=== PATIENT | male | born 1965 | race African-American/Black ===

== ENCOUNTER 2021-09-23 02:44 | Inpatient (IN) | payer OTHER, SELFPAY ==
[2021-09-23] MEDS ORDERED: Morphine 2 MG/ML VIAL SLOW IVP PRN (03:18)
[2021-09-23] MEDS ORDERED: traMADol HCl 50 MG TAB PO PRN (03:18)
[2021-09-23] MEDS ORDERED: Promethazine HCl 25 MG/ML VIAL IM PRN (03:26)
[2021-09-23] MEDS ORDERED: Ondansetron PF 4 MG/2 ML Vial IVP PRN (03:26)
[2021-09-23] MEDS ORDERED: Sodium Chloride 0.9% 1,000 ML IV SCH (03:30)
[2021-09-23] MEDS ORDERED: Morphine 4 MG/ML VIAL ONE (03:56)
[2021-09-23] MEDS: Sodium Chloride 0.9% 1,000 ML IV SCH ×2 (04:23→12:02)
[2021-09-23] MEDS ORDERED: traMADol HCl 50 MG TAB PO SCH (06:00)
[2021-09-23] MEDS ORDERED: hydrALAZINE 20 MG/ML VIAL SLOW IVP SCH (06:15)
[2021-09-23] MEDS: Acetaminophen 500 MG TAB PO SCH ×4 (06:47→23:25)
[2021-09-23 06:58] VITALS: BMI 35.1
[2021-09-23 07:21] LABS: #Basophils 0.1 thou/uL (0.0-0.2); #Lymphocytes 1.9 thou/uL (1.20-3.40); #Monocytes 0.9 thou/uL (0.11-0.59); #Neutrophils 7.1 thou/uL (1.40-6.50); %Basophils 0.7 % (0.0-1.0); %Eosinophils 0.3 % (0.0-10.0); %Monocytes 8.5 % (0.0-10.0); %Neutrophils 71.4 % (42.0-75.0); Hemoglobin 11.8 g/dL (14.0-18.0); Mean Corpuscular HGB CONC 32.3 g/dL (32.0-36.0); Mean Corpuscular Volume 92.6 fL (78.0-98.0); Mean Platelet Volume 8.6 fL (7.4-10.4); Platelet Count 199 thou/uL (130-400); RBC Distribution Width 11.4 % (11.5-14.5); Red Blood Cell (RBC) Count 3.94 mill/uL (4.70-6.10)
[2021-09-23 07:31] LABS: Anion Gap 13 mmol/L (10-20); BUN (Urea Nitrogen) 18 mg/dL (8.4-25.7); Calc. Creatinine Clearance 140 mL/min (70-130); Calcium 8.8 mg/dL (7.8-10.44); Carbon Dioxide 25 mmol/L (22-29); Chloride 106 mmol/L (98-107); Glucose 101 mg/dL (70-105); Magnesium 2.2 mg/dL (1.6-2.6); Phosphorus 2.9 mg/dL (2.3-4.7); Potassium 4.2 mmol/L (3.5-5.1); Sodium 140 mmol/L (136-145)
[2021-09-23] MEDS: Gabapentin 300 MG CAP PO SCH ×3 (08:43→19:55)
[2021-09-23] MEDS: Senokot S 8.6-50 MG TAB PO SCH ×2 (08:46→19:55)
[2021-09-23] MEDS: Polyethylene Glycol 3350 17 GM Packet PO SCH (08:56)
[2021-09-23] MEDS ORDERED: hydrALAZINE 20 MG/ML VIAL SLOW IVP PRN (10:15)
[2021-09-23] MEDS ORDERED: Ketorolac Tromethamine 30 MG/ML VIAL IVP SCH (10:30)
[2021-09-23] MEDS: Cyclobenzaprine 10 MG TAB PO PRN (10:36)
[2021-09-23] MEDS: Ketorolac Tromethamine 30 MG/ML VIAL IVP SCH ×3 (11:59→23:25)
[2021-09-23] MEDS: traMADol HCl 50 MG TAB PO SCH ×3 (12:00→23:26)
[2021-09-24] MEDS: Acetaminophen 500 MG TAB PO SCH ×3 (05:33→18:09)
[2021-09-24] MEDS: traMADol HCl 50 MG TAB PO SCH ×3 (05:34→18:10)
[2021-09-24] MEDS: Ketorolac Tromethamine 30 MG/ML VIAL IVP SCH (05:35)
[2021-09-24 06:56] LABS: Anion Gap 13 mmol/L (10-20); BUN (Urea Nitrogen) 16 mg/dL (8.4-25.7); Calc. Creatinine Clearance 165 mL/min (70-130); Carbon Dioxide 23 mmol/L (22-29); Chloride 105 mmol/L (98-107); Glucose 94 mg/dL (70-105); Magnesium 2.1 mg/dL (1.6-2.6); Potassium 4.3 mmol/L (3.5-5.1); Sodium 137 mmol/L (136-145)
[2021-09-24 06:58] LABS: #Basophils 0.1 thou/uL (0.0-0.2); #Eosinphils 0.1 thou/uL (0.0-0.7); #Lymphocytes 1.5 thou/uL (1.20-3.40); #Monocytes 0.5 thou/uL (0.11-0.59); #Neutrophils 4.3 thou/uL (1.40-6.50); %Basophils 0.8 % (0.0-1.0); %Eosinophils 2.2 % (0.0-10.0); %Lymphocytes 22.6 % (21.0-51.0); %Monocytes 8.3 % (0.0-10.0); %Neutrophils 66.1 % (42.0-75.0); Eosinophils 4 % (0-10); Hemoglobin 11.4 g/dL (14.0-18.0); Hypochromia SLIGHT = 6-15 cells (100X) (0-5/hpf); Lymphocytes 28 % (21-51); MDiff Complete? YES; Mean Corpuscular HGB CONC 29.8 g/dL (32.0-36.0); Mean Corpuscular Hemoglobin 29.3 pg (27.0-31.0); Mean Corpuscular Volume 98.3 fL (78.0-98.0); Mean Platelet Volume 8.8 fL (7.4-10.4); Monocytes 8 % (0-10); Neutrophil 60 % (42-75); Platelet Count 180 thou/uL (130-400); Platelet Morphology Comment Appears Adequate; Polychromasia SLIGHT = 2-3 cells (100X) (0-2/hpf); RBC Distribution Width 11.7 % (11.5-14.5); White Blood Cell (WBC) Count 6.4 thou/uL (4.8-10.8)
[2021-09-24] MEDS ORDERED: Ibuprofen 600 MG TAB PO PRN (08:36)
[2021-09-24] MEDS ORDERED: Enoxaparin Sodium 40 MG/0.4 ML SYRINGE SC SCH (09:00)
[2021-09-24] MEDS: Cyclobenzaprine 10 MG TAB PO PRN (09:00)
[2021-09-24] MEDS: Gabapentin 300 MG CAP PO SCH ×2 (09:02→15:46)
[2021-09-24] MEDS: Senokot S 8.6-50 MG TAB PO SCH (09:04)
[2021-09-24] MEDS: Ibuprofen 200 MG TAB PO PRN ×3 (09:04→15:48)
[2021-09-24] MEDS: Polyethylene Glycol 3350 17 GM Packet PO SCH (09:06)
[2021-09-24 17:45] VITALS: BP 142/83; TEMP 97.7
== END 2021-09-24 19:15 | disposition home or self-care (01) | DRG 184 ==
LOC: ERS 02:44 → ERHOLD 03:26 → SURG A 06:26
PROVIDERS: ADMIT Surgery; ATTEND Surgery
DX: S22.42XA Multiple fractures of ribs, left side, initial encounter for closed fracture (principal); N17.9 Acute kidney failure, unspecified; Z20.822 Contact with and (suspected) exposure to COVID-19; G47.30 Sleep apnea, unspecified; V80.010A Animal-rider injured by fall from or being thrown from horse in noncollision accident, initial encounter; Y92.9 Unspecified place or not applicable; Z87.891 Personal history of nicotine dependence
CPT/HCPCS: 36415; 71045; 80048; 83735; 84100; 85025; J0360; J1650; J1885; J2270; J7050; U0003; U0005

== ENCOUNTER 2021-10-06 14:48 | Outpatient (CLI) | payer OTHER | END 2021-10-06 14:49 | disposition home or self-care (01) | LOC: BICRAD 14:48 | PROVIDERS: ATTEND Surgery | DX: S22.42XA Multiple fractures of ribs, left side, initial encounter for closed fracture (principal); J98.11 Atelectasis | CPT/HCPCS: 71046 ==